=== PATIENT | female | born 1985 | race Caucasian/White ===

== ENCOUNTER 2018-05-23 16:37 | Inpatient (IN) | payer OTHER ==
[~2018-05-23] VITALS: Ht 157.5 cm; Wt 109.0 kg
[2018-05-23] MEDS ORDERED: OXYTOCIN 30U/ 0.9% NaCL 500ML 500 ML IV ONE (17:36)
[2018-05-23] MEDS ORDERED: D5%-LACTATED RINGERS 1,000 ML IV SCH (17:36)
[2018-05-23] MEDS ORDERED: FENTANYL PF 100 MCG/2ML IV PRN (18:00)
[2018-05-23] MEDS ORDERED: PLEASE ENTER HEIGHT AND WEIGHT MC SCH (18:00)
[2018-05-23] MEDS ORDERED: ONDANSETRON 2MG/ML, 2ML IVPush PRN (18:00)
[2018-05-23] MEDS ORDERED: NEWBORN KIT ONE (18:24)
[2018-05-23] MEDS ORDERED: LIDOCAINE/PF 1%, 30ML ONE (18:24)
[2018-05-23] MEDS ORDERED: OXYTOCIN 30U/ 0.9% NaCL 500ML 500 ML ONE (18:24)
[2018-05-23] MEDS ORDERED: MISOPROSTOL 200 MCG TABLET ONE (18:24)
[2018-05-23 18:25] LABS: BASOPHILS # (AUTO) 0.06 x10^3/uL (0-0.1); BASOPHILS % (AUTO) 0 % (0-1); EOSINOPHILS # (AUTO) 0.03 x10^3/uL (0-0.4); EOSINOPHILS % (AUTO) 0 % (1-7); LYMPHOCYTES # (AUTO) 1.82 x10^3/uL (1-3.4); LYMPHOCYTES % (AUTO) 13 % (22-44); MD NO; MEAN CORPUSCULAR HEMOGLOBIN 29.6 pg (27.0-34.8); MEAN CORPUSCULAR HGB CONC 33.9 g/dL (32.4-35.8); MEAN CORPUSCULAR VOLUME 87.3 fL (80-100); MEAN PLATELET VOLUME 9.9 fL (7.4-10.4); MONOCYTES # (AUTO) 1.07 x10^3/uL (0.2-0.8); MONOCYTES % (AUTO) 8 % (2-9); NEUTROPHILS # (AUTO) 11.13 x10^3/uL (1.8-6.8); NEUTROPHILS % (AUTO) 79 % (42-75); PLATELET COUNT 227 x10^3/uL (130-400); RED BLOOD COUNT 4.68 x10^6/uL (3.82-5.3); RED CELL DISTRIBUTION WIDTH 15.2 % (9.6-15.2)
[2018-05-23] MEDS: LACTATED RINGERS 1,000 ML IV SCH (19:36)
[2018-05-23] MEDS ORDERED: BUPIVACAINE/PF 0.25% ONE (20:16)
[2018-05-23] MEDS ORDERED: CALCIUM CARBONATE 500 MG TAB.CHEW ONE (22:23)
[2018-05-23] MEDS ORDERED: CALCIUM CARBONATE 500 MG TAB.CHEW PO PRN (22:30)
[2018-05-24] MEDS: LACTATED RINGERS 1,000 ML IV SCH ×4 (01:36→16:48)
[2018-05-24] MEDS ORDERED: OXYTOCIN 30U/ 0.9% NaCL 500ML 500 ML IV PRN (06:20)
[2018-05-24] MEDS ORDERED: TERBUTALINE 1 MG/ML, 1ML IVPush PRN (06:30)
[2018-05-24] MEDS ORDERED: FENTANYL PF 100 MCG/2ML ONE ×5 (07:38→15:05)
[2018-05-24] MEDS: FENTANYL PF 100 MCG/2ML IVPush PRN ×4 (07:42→13:21)
[2018-05-24] MEDS ORDERED: FENTANYL/BUPIV./NS/PF 250 ML EPIDCONT SCH (11:44)
[2018-05-24] MEDS ORDERED: FENTANYL PF 500 MCG, BUPIVACAINE/PF 0.5%, 30ML 62.5 ML in SODIUM CHLORIDE 0.9% 177.5 ML EPIDCONT SCH (12:00)
[2018-05-24] MEDS ORDERED: LIDOCAINE/PF 1.5%-EPI 1:200K, 30ML ONE (15:05)
[2018-05-24] MEDS ORDERED: BUPIVACAINE 0.25% ONE ×2 (15:05)
[2018-05-24] MEDS ORDERED: FENTANYL/BUPIV./NS/PF 250 ML EPIDCONT ONE (15:05)
[2018-05-24] MEDS ORDERED: LIDOCAINE-MPF 2% ,5ML ONE (15:05)
[2018-05-25] MEDS ORDERED: SODIUM CITRATE/CITRIC ACID 30 ML UDC ONE (02:03)
[2018-05-25] MEDS ORDERED: METOCLOPRAMIDE 5 MG/ML, 2ML ONE (02:03)
[2018-05-25] MEDS ORDERED: OXYTOCIN 30U/ 0.9% NaCL 500ML 500 ML IV SCH (02:12)
[2018-05-25] MEDS ORDERED: LACTATED RINGERS 1,000 ML IV SCH (02:20)
[2018-05-25] MEDS ORDERED: LACTATED RINGERS 1,000 ML IVBOLUS ONE (02:30)
[2018-05-25] MEDS ORDERED: SODIUM CITRATE/CITRIC ACID 30 ML UDC PO ONE (02:30)
[2018-05-25] MEDS ORDERED: METOCLOPRAMIDE 5 MG/ML, 2ML IV ONE (02:30)
[2018-05-25] MEDS ORDERED: KETOROLAC 30 MG/1 ML ONE (02:49)
[2018-05-25] MEDS ORDERED: PROPOFOL 10 MG/ML, 20ML ONE (02:49)
[2018-05-25] MEDS ORDERED: ONDANSETRON 2MG/ML, 2ML ONE (02:49)
[2018-05-25] MEDS ORDERED: CEFAZOLIN 1,000 MG ONE (02:49)
[2018-05-25] MEDS ORDERED: METHYLERGONOVINE 0.2 MG/ML IM ONE (03:17)
[2018-05-25] MEDS: LACTATED RINGERS 1,000 ML IV SCH ×5 (04:10→20:10)
[2018-05-25] MEDS ORDERED: OXYTOCIN 30U/ 0.9% NaCL 500ML 500 ML ONE (04:20)
[2018-05-25] MEDS: OXYTOCIN 30U/ 0.9% NaCL 500ML 500 ML IV SCH ×2 (04:22→14:10)
[2018-05-25] MEDS ORDERED: MISOPROSTOL 200 MCG TABLET PR PRN (04:30)
[2018-05-25] MEDS ORDERED: BISACODYL 10 MG SUPP PR PRN (04:30)
[2018-05-25] MEDS ORDERED: ONDANSETRON 2MG/ML, 2ML IV PRN ×2 (04:30)
[2018-05-25] MEDS ORDERED: CARBOPROST TROMETHAMINE 250 MCG/ML, 1ML IM PRN (04:30)
[2018-05-25] MEDS ORDERED: morphine SULFATE 10 MG/ML, 1ML IVPush PRN (04:30)
[2018-05-25] MEDS ORDERED: HYDROmorphone 2 MG/ML, 1ML IV PRN (04:30)
[2018-05-25] MEDS ORDERED: GLYCERIN ADULT SUPP PR PRN (04:30)
[2018-05-25] MEDS: KETOROLAC 30 MG/1 ML IV SCH ×4 (04:30→22:34)
[2018-05-25] MEDS ORDERED: FENTANYL PF 100 MCG/2ML IVPush PRN (04:30)
[2018-05-25] MEDS ORDERED: IBUPROFEN 800 MG TABLET PO PRN (04:30)
[2018-05-25] MEDS ORDERED: METOCLOPRAMIDE 5 MG/ML, 2ML IV PRN (04:30)
[2018-05-25] MEDS ORDERED: ACETAMINOPHEN 325 MG TABLET PO PRN (04:30)
[2018-05-25 06:15] VITALS: BP 108/70
[2018-05-25 07:10] VITALS: BP 110/70
[2018-05-25] MEDS: PRENATAL VIT/IRON/FA 1 EACH TABLET PO SCH (08:29)
[2018-05-25] MEDS: OXYcodone IR 5MG TABLET PO PRN ×4 (09:53→22:34)
[2018-05-25 11:43] LABS: BASOPHILS % (AUTO) 0 % (0-1); EOSINOPHILS # (AUTO) 0.04 x10^3/uL (0-0.4); EOSINOPHILS % (AUTO) 0 % (1-7); LYMPHOCYTES # (AUTO) 1.52 x10^3/uL (1-3.4); LYMPHOCYTES % (AUTO) 9 % (22-44); MD NO; MEAN CORPUSCULAR HEMOGLOBIN 29.9 pg (27.0-34.8); MEAN CORPUSCULAR HGB CONC 34.2 g/dL (32.4-35.8); MEAN CORPUSCULAR VOLUME 87.6 fL (80-100); MEAN PLATELET VOLUME 9.5 fL (7.4-10.4); MONOCYTES # (AUTO) 0.89 x10^3/uL (0.2-0.8); MONOCYTES % (AUTO) 5 % (2-9); NEUTROPHILS # (AUTO) 15.38 x10^3/uL (1.8-6.8); NEUTROPHILS % (AUTO) 86 % (42-75); PLATELET COUNT 218 x10^3/uL (130-400); RED BLOOD COUNT 4.06 x10^6/uL (3.82-5.3); RED CELL DISTRIBUTION WIDTH 14.7 % (9.6-15.2)
[2018-05-25 13:45] VITALS: BP 121/76
[2018-05-25 17:00] VITALS: BP 120/86
[2018-05-25] MEDS: DOCUSATE 100 MG CAPSULE PO PRN (19:40)
[2018-05-25 19:45] VITALS: BP 114/71
[2018-05-25 23:40] VITALS: BP 116/74
[2018-05-26] MEDS: LACTATED RINGERS 1,000 ML IV SCH ×8 (00:10→23:55)
[2018-05-26] MEDS: OXYTOCIN 30U/ 0.9% NaCL 500ML 500 ML IV SCH ×4 (00:10→23:55)
[2018-05-26] MEDS: KETOROLAC 30 MG/1 ML IV SCH ×2 (04:41→10:30)
[2018-05-26 07:45] VITALS: BP 111/69
[2018-05-26] MEDS: DOCUSATE 100 MG CAPSULE PO PRN ×2 (08:15→20:28)
[2018-05-26] MEDS: PRENATAL VIT/IRON/FA 1 EACH TABLET PO SCH (08:15)
[2018-05-26] MEDS: IBUPROFEN 600 MG TABLET PO PRN ×3 (10:28→22:36)
[2018-05-26] MEDS: OXYcodone IR 5MG TABLET PO PRN ×3 (10:28→20:28)
[2018-05-26 20:00] VITALS: BP 111/66
[2018-05-27] MEDS: OXYcodone IR 5MG TABLET PO PRN ×4 (00:35→22:11)
[2018-05-27] MEDS: IBUPROFEN 600 MG TABLET PO PRN ×4 (04:31→23:47)
[2018-05-27 07:55] VITALS: BP 122/73
[2018-05-27] MEDS: OXYcodone/APAP 5/325MG TABLET PO PRN ×2 (08:30→12:38)
[2018-05-27] MEDS: PRENATAL VIT/IRON/FA 1 EACH TABLET PO SCH (08:30)
[2018-05-27] MEDS: DOCUSATE 100 MG CAPSULE PO PRN ×2 (08:30→22:11)
[2018-05-27 19:40] VITALS: BP 114/69
[2018-05-28] MEDS: OXYTOCIN 30U/ 0.9% NaCL 500ML 500 ML IV SCH ×2 (02:10→03:25)
[2018-05-28] MEDS: LACTATED RINGERS 1,000 ML IV SCH ×4 (02:10→04:43)
[2018-05-28] MEDS: OXYcodone IR 5MG TABLET PO PRN ×2 (02:45→07:54)
[2018-05-28] MEDS: IBUPROFEN 600 MG TABLET PO PRN (06:02)
[2018-05-28] MEDS: DOCUSATE 100 MG CAPSULE PO PRN (07:54)
[2018-05-28] MEDS: PRENATAL VIT/IRON/FA 1 EACH TABLET PO SCH (07:54)
[2018-05-28] MEDS ORDERED: IBUP-1222 PO (08:56)
[2018-05-28] MEDS ORDERED: OXYC-302 PO (08:56)
[2018-05-28] MEDS ORDERED: DOCU-131 PO (08:56)
[2018-05-28 09:04] VITALS: BP 110/72
== END 2018-05-28 10:55 | disposition home or self-care (01) | DRG 766 ==
LOC: LDOP 16:37 → LDIP 17:36 → 2NW 05-25 06:05
PROVIDERS: ADMIT Obstetrics & Gynecology; ATTEND Obstetrics & Gynecology
PROC: 10D00Z1 Extraction of Products of Conception, Low, Open Approach (ICD-10-PCS; principal; 2018-05-24)
DX: O48.0 Post-term pregnancy (principal); O42.92 Full-term premature rupture of membranes, unspecified as to length of time between rupture and onset of labor; Z37.0 Single live birth; Z3A.41 41 weeks gestation of pregnancy
CPT/HCPCS: 36415; J7121; 85025; 86850; 86900; J0690; J1885; J2250; J2274; J2405; J2704; J3010; J3490; J2370; J2590; J2765; J7120